=== PATIENT | male | born 1955 | race Caucasian/White ===

== ENCOUNTER 2017-01-04 10:04 | Emergency (ER) | payer MEDICAID ==
[~2017-01-04] VITALS: Ht 162.6 cm; Wt 78.9 kg
[~2017-01-04 10:04] MED LIST: [UNRECOGNIZED DRUG - CODE] PO
[2017-01-04 10:14] VITALS: Ht 162.6 cm; Wt 78.9 kg
[2017-01-04] MEDS ORDERED: IBUPROFEN 600 MG TAB PO ONE (11:30)
--- NOTE | 2017-01-04 11:53 | RADRPT ---
PROCEDURE: Right elbow series CLINICAL INDICATION: Right elbow pain. TECHNIQUE: AP, oblique, and lateral views of the right elbow were obtained. COMPARISON: None FINDINGS: No acute fracture or dislocations are seen. The osseous structures are well mineralized. The artic ular surfaces are normal. No joint effusion is seen. No soft tissue abnormalities are seen. IMPRESSION: Unremarkable right elbow series. RPTAT: HPNM Physician Alvarado Date Time Electronically viewed and signed by Demetrius Garcia Physician on 01/04/2017 11:53 /
[2017-01-04] MEDS ORDERED: IBUP-1542 PO (12:26)
[2017-01-04] MEDS ORDERED: IBUP400T22 PO (12:26)
--- NOTE | 2017-01-04 12:34 | ERD ---
ER Documentation Chief Complaint Date/Time DATE: 01/04/17 TIME: 12:29 Chief Complaint Pt with B elbow pain X 4 weeks. no injury. HPI 61-year-old male patient with no significant past medical history presents to the ED complaining of right elbow pain that started intermittently 4 weeks ago. Reports that this feels achy and rates it a 6 out of 10. States that he sleeps with his elbows in a flexed position and he lays on his hands. Reports that he has been doing this for many years. Denies any weakness, numbness or tingling, chest pain, shortness of breath, abdominal pain, nausea, vomiting. ROS All systems reviewed and are negative except as per history of present illness. Medications Home Meds Active Scripts Ibuprofen* (Motrin*) 400 Mg Tab, 400 MG PO Q6, #30 TAB Prov:GIOVANNI ERVIN PA-C 01/04/17 Pseudoephedrine Hcl (12 HOUR COLD RELIEF) 120 Mg Tablet.er, 120 MG PO Q12 for 10 Days, TAB Prov:SHERRI BURGOS NP 06/15/16 Allergies Allergies: Coded Allergies: No Known Allergy (Unverified , 01/04/17) PMhx/Soc Medical and Surgical Hx: pt denies Medical Hx, pt denies Surgical Hx Hx Alcohol Use: No Hx Substance Use: No Hx Tobacco Use: Yes Smoking Status: Never smoker Physical Exam Vitals Vital Signs Date Time Temp Pulse Resp B/P Pulse Ox O2 Delivery O2 Flow Rate FiO2 01/04/17 10:14 97.9 115 18 147/85 97 Physical Exam Const: [id number], well-nourished. In no acute distress. Head: Atraumatic, normocephalic Eyes: Normal Conjunctiva without injection ENT: Normal external ear, nose and mouth. Neck: Full range of motion. No meningismus. Resp: Clear to auscultation bilaterally. No wheezing, rhonchi, rales, or crackles. No accessory muscle use. No retractions. Cardio: Regular rate and rhythm, no murmurs Skin: No petechiae or rashes Back: No midline tenderness. No CVA tenderness. Ext: No cyanosis, or edema. Cap refill less than 2 seconds. Distal pulses intact bilaterally. Tenderness to palpation of the lateral malleolus. Patient was able to bilaterally flex, extend, supinate and pronate bilateral elbows. Full range of motion of other extremities. No erythema, edema, deformities, warmth to touch bilaterally. Neur: Awake and alert. Normal gait and coordination. Muscle strength 5/5. Sensation intact bilaterally. Psych: Normal Mood and Affect Results 24 hrs Current Medications Medications (Trade) Dose Ordered Sig/Hola Route PRN Reason Start Time Stop Time Status Last Admin Dose Admin Ibuprofen (Motrin) 600 mg ONCE ONCE PO 01/04/17 11:30 01/04/17 11:38 DC 01/04/17 11:11 Procedures/MDM This is a 61-year-old male patient presents the ED complaining of right elbow pain that started intermittently 4 weeks ago. Patient is afebrile and nontoxic- appearing. Patient has normal vital signs. A right elbow x-ray was ordered to further evaluate patient. PROCEDURE: Right elbow series CLINICAL INDICATION: Right elbow pain. TECHNIQUE: AP, oblique, and lateral views of the right elbow were obtained. COMPARISON: None FINDINGS: No acute fracture or dislocations are seen. The osseous structures are well mineralized. The articular surfaces are normal. No joint effusion is seen. No soft tissue abnormalities are seen. IMPRESSION: Unremarkable right elbow series. Patient is placed in a right elbow Ike wrap. Splint Assessment: Neurovascularly intact pre and post Ike wrap placement with good fit. Patient likely has a right elbow sprain. Patient's extremity symptoms have stabilized while they have been evaluated in the department and are appropriate for outpatient follow up. No evidence of fractures, dislocations, compartment syndrome, neurologic injury, vascular injury, open joint, open fracture, tendon laceration, septic arthritis, osteomyelitis, DVT, foreign body, or other emergent conditions. Discharge medications: Ibuprofen Follow up with primary care physician in 1-2 days. Instructed patient to return to the ED sooner for any worsening symptoms. Patient's questions were answered. Patient understood and agreed with discharge plan. Patient discharged stable. Departure Diagnosis: Primary Impression: Elbow pain Laterality: right Qualified Code: M25.521 - Right elbow pain Condition: Stable Patient Instructions: Sprain Elbow Referrals: [facility] Usted se cm hecho un examen mdico de control que le indica que no est en rian condicin que requiera tratamiento urgente en el Departamento de Emergencia. Un estudio ms profundo y el tratamiento de carr condicin pueden esperar sin ningn riesgo hasta que usted sea atendida/o en el consultorio de carr mdico o rian cl tim. Es responsabilidad suya arreglar rian shanelle para el seguimiento del caro. MANEJO DE CONDICIONES NO URGENTES EN EL FUTURO 1) Si usted tiene un mdico de atencin primaria: Usted debera llamar a carr mdico de atencin primaria antes de venir al departamento de emergencia. Despus de las horas de consultorio, carr doctor o carr asociado/a est disponible por telfono. El mdico o enfermero de macy en el servicio telefnico puede asesorarle por monique medio para atender el problema, o caro contrario se puede programar rian shanelle. 2) Si usted no tiene un mdico de atencin primaria: Llame al mdico o clnica de referencia que aparece abajo jacoby las horas de consultorio para hacer rian shanelle para que le vean. CLINICAS: [facility] [phone] [facility] [phone] [address] [facility]. [facility] [phone] [address] [facility]. [place] [phone] [facility] [place] [id number] [phone] [facility]. [phone] [facility] () Usted se cm hecho un examen mdico de control que le indica que no est en rian condicin que requiera tratamiento urgente en el Departamento de Emergencia. Un estudio ms profundo y el tratamiento de carr condicin pueden esperar sin ningn riesgo hasta que usted sea atendida/o en el consultorio de carr mdico o rian cl tim. Es responsabilidad suya arreglar rian shanelle para el seguimiento del caro. MANEJO DE CONDICIONES NO URGENTES EN EL FUTURO 1) Si usted tiene un mdico de atencin primaria: Usted debera llamar a carr mdico de atencin primaria antes de venir al departamento de emergencia. Despus de las horas de consultorio, carr doctor o carr asociado/a est disponible por telfono. El mdico o enfermero de macy en el servicio telefnico puede asesorarle por monique medio para atender el problema, o caro contrario se puede programar rian shanelle. 2) Si usted no tiene un mdico de atencin primaria: Llame al mdico o condado institucions de referencia que aparece abajo jacoby las horas de consultorio para hacer rian shanelle para que le vean. SI USTED NO PUEDE PAGAR PARA IKE UN MEDICO puede ir a: [facility] [address] [place] [address] [facility] [address] [place] [address] [facility] [address] [place] [address] [facility] [address] [place], [place] [id number] Additional Instructions: Llame al doctor MAANA y danelle rian SHANELLE PARA DENTRO DE 2-3 FERRER.Dgale a la secretaria que nosotros le instruimos hacer esta shanelle.Avise o llame si carr condicin se empeora antes de la shanelle. Regresa aqui si peor o no mejor. GIOVANNI ERVIN PA-C Jan 04, 2017 12:34
== END 2017-01-04 12:48 | disposition home or self-care (01) ==
LOC: FTE 10:04
DX: M25.521 Pain in right elbow (principal); I10 Essential (primary) hypertension; Z87.891 Personal history of nicotine dependence
CPT/HCPCS: 73080; Z7502; Z7610

== ENCOUNTER 2017-01-30 08:33 | Emergency (ER) | payer MEDICAID ==
[~2017-01-30] VITALS: Ht 160 cm; Wt 72.0 kg
[~2017-01-30 08:33] MED LIST changes: +IBUP400T22 PO
[2017-01-30 08:39] VITALS: Ht 160 cm; Wt 72.0 kg
[2017-01-30] MEDS ORDERED: ASPIRIN 325 MG TAB PO STA (10:37)
[2017-01-30] MEDS ORDERED: AMLO-147 PO (10:49)
[2017-01-30 10:56] LABS: ADD SCAN DIFF NO
[2017-01-30] MEDS ORDERED: LIDOCAINE/MYLANTA 40 ML BTL PO ONE (11:00)
[2017-01-30 11:16] LABS: BASOPHILS % 0.4 % (0.0-2.0); EOSINOPHILS # 0.1 10^3/ul (0.0-0.5); EOSINOPHILS % 1.4 % (0.0-7.0); HEMOGLOBIN 14.1 g/dl (14.0-18.0); LYMPHOCYTES # 1.8 10^3/ul (0.8-2.9); LYMPHOCYTES % 25.6 % (15.0-51.0); MEAN CORPUSCULAR HEMOGLOBIN 30.7 pg (29.0-33.0); MEAN CORPUSCULAR HGB CONC 33.6 g/dl (32.0-37.0); MEAN CORPUSCULAR VOLUME 91.5 fl (82.0-101.0); MEAN PLATELET VOLUME 10.2 fl (7.4-10.4); MONOCYTE # 0.5 10^3/ul (0.3-0.9); MONOCYTES % 6.5 % (0.0-11.0); NEUTROPHIL # 4.7 10^3/ul (1.6-7.5); NEUTROPHILS % 65.5 % (39.0-77.0); PLATELET COUNT 220 10^3/UL (140-415); RED BLOOD COUNT 4.59 10^6/ul (4.70-6.10); RED CELL DISTRIBUTION WIDTH 12.1 % (11.5-14.5); WHITE BLOOD COUNT 7.1 10^3/ul (4.8-10.8)
[2017-01-30 11:19] LABS: INR 0.94; PROTIME 12.6 Sec (12.2-14.2)
[2017-01-30 11:23] LABS: ANION GAP 9 (8-16); BLOOD UREA NITROGEN 13 mg/dl (7-20); CALCIUM 8.6 mg/dl (8.4-10.2); CARBON DIOXIDE 28 mmol/L (21-31); CHLORIDE 107 mmol/L (97-110); CREATININE 0.63 mg/dl (0.61-1.24); GLUCOSE 134 mg/dl (70-220); POTASSIUM 3.3 mmol/L (3.5-5.1); SODIUM 141 mmol/L (135-144)
--- NOTE | 2017-01-30 11:55 | RADRPT ---
PROCEDURE: Chest Radiograph. CLINICAL INDICATION: Chest pain TECHNIQUE: Single frontal chest radiograph. COMPARISON: None available FINDINGS: Heart size is within normal limits. Atherosclerotic calcifications are present. No infiltrate or effusion is seen. The bones are intact. IMPRESSION: 1. No evidence of acute cardiopulmonary disease. 2. Atherosclerotic vascular disease. RPTAT: KK .Tony Villegas MD, MD Date Time Electronically viewed and signed by .Tony Villegas MD, on 01/30/2017 11:54 .B/
[2017-01-30 12:04] LABS: TROPONIN-I < 0.012 ng/ml (0.00-0.12)
[2017-01-30 12:37] VITALS: BP 155/90; PULSE 86; RESP 18
[2017-01-30] MEDS ORDERED: RANI150T9 PO (13:02)
--- NOTE | 2017-01-30 13:06 | ERD ---
ER Documentation Chief Complaint Date/Time DATE: 01/30/17 TIME: 13:03 Chief Complaint CHEST PAIN X 1 MONTH AND STATES HTN HPI This 61-year-old male presents with burning chest pain that goes from his epigastric area to his mid sternum and sometimes on his left side on and off for a month. Today he has had the pain for approximately 6 hours. He has no shortness of breath, nausea or vomiting with it. He denies fevers and chills. He does have hypertension for which he takes amlodipine 10 mg. He has no other medical problems and does have a good primary care that he follows up with regularly. ROS All systems reviewed and are negative except as per history of present illness. Medications Home Meds Active Scripts Ranitidine Hcl* (Zantac*) 150 Mg Tablet, 150 MG PO BID Y for EPIGASTRIC PAIN, # 60 TAB Prov:ARLET RIGGINS DO 01/30/17 Reported Medications Amlodipine Besylate* (Amlodipine Besylate*) 10 Mg Tablet, 10 MG PO DAILY, #30 TAB 01/30/17 Discontinued Scripts Ibuprofen* (Motrin*) 400 Mg Tab, 400 MG PO Q6, #30 TAB Prov:GIOVANNI ERVIN PA-C 01/04/17 Pseudoephedrine Hcl (12 HOUR COLD RELIEF) 120 Mg Tablet.er, 120 MG PO Q12 for 10 Days, TAB Prov:SHERRI BURGOS NP 06/15/16 Allergies Allergies: Coded Allergies: No Known Allergy (Unverified , 01/30/17) PMhx/Soc History of Surgery: No Anesthesia Reaction: No Hx Neurological Disorder: No Hx Respiratory Disorders: No Hx Psychiatric Problems: No Hx Miscellaneous Medical Probl: No Hx Alcohol Use: No Hx Substance Use: No Hx Tobacco Use: Yes Smoking Status: Current every day smoker Physical Exam Vitals Vital Signs Date Time Temp Pulse Resp B/P Pulse Ox O2 Delivery O2 Flow Rate FiO2 01/30/17 12:37 86 18 155/90 100 Nasal Cannula 2.0 01/30/17 10:38 Nasal Cannula 2 01/30/17 08:39 97.8 103 18 156/82 95 Physical Exam Const: [] No distress Head: Atraumatic Eyes: Normal Conjunctiva ENT: Normal External Ears, Nose and Mouth. Neck: Full range of motion..~ No meningismus. Resp: Clear to auscultation bilaterally Cardio: Regular rate and rhythm, no murmurs Abd: Soft, non tender, non distended. Normal bowel sounds Skin: No petechiae or rashes Back: No midline or flank tenderness Ext: No cyanosis, or edema Neur: Awake and alert and oriented 3, no focal deficit Psych: Normal Mood and Affect Result Diagram: 01/30/17 1030 01/30/17 1030 Results 24 hrs Laboratory Tests Test 01/30/17 10:30 White Blood Count 7.110^3/ul Red Blood Count 4.5910^6/ul Hemoglobin 14.1g/dl Hematocrit 42.0% Mean Corpuscular Volume 91.5fl Mean Corpuscular Hemoglobin 30.7pg Mean Corpuscular Hemoglobin Concent 33.6g/dl Red Cell Distribution Width 12.1% Platelet Count 57336^3/UL Mean Platelet Volume 10.2fl Neutrophils % 65.5% Lymphocytes % 25.6% Monocytes % 6.5% Eosinophils % 1.4% Basophils % 0.4% Nucleated Red Blood Cells % 0.0/100WBC Neutrophils # 4.710^3/ul Lymphocytes # 1.810^3/ul Monocytes # 0.510^3/ul Eosinophils # 0.110^3/ul Basophils # 0.010^3/ul Nucleated Red Blood Cells # 0.010^3/ul Prothrombin Time 12.6Sec Prothrombin Time Ratio 1.0 INR International Normalized Ratio 0.94 Activated Partial Thromboplast Time 29.0Sec Sodium Level 141mmol/L Potassium Level 3.3mmol/L Chloride Level 107mmol/L Carbon Dioxide Level 28mmol/L Anion Gap 9 Blood Urea Nitrogen 13mg/dl Creatinine 0.63mg/dl Glucose Level 134mg/dl Calcium Level 8.6mg/dl Troponin I < 0.012ng/ml Current Medications Medications (Trade) Dose Ordered Sig/Hola Route PRN Reason Start Time Stop Time Status Last Admin Dose Admin Miscellaneous Medication (Gi Cocktail (2)) 40 ml ONCE ONCE PO 01/30/17 11:00 01/30/17 11:01 DC 01/30/17 10:45 Aspirin (Aspirin) 325 mg ONCE STAT PO 01/30/17 10:37 01/30/17 10:38 DC 01/30/17 10:45 Procedures/MDM Chest pain in a 61-year-old male with presentation most consistent with acid reflux. Chest pain is described as a burning sensation with no other associated symptoms. He was given aspirin as well as a GI cocktail in the emergency room which immediately took away all of his pain. He was symptom- free in the emergency room. Has a nonischemic EKG and a negative troponin. I am going to discharge him with Zantac prescription as well as instructions to see his primary care doctor, who he has an appointment with next week, to obtain an echocardiogram of his heart. EKG interpretation: Normal sinus rhythm rate of 98, normal axis, normal intervals, no ST or T-wave changes concerning for acute ischemia. Nonspecific ST-T wave change. shank archer interpretation: Normal sinus arrhythmia Chest x-ray interpretation: No acute process, I see no widened mediastinum, no pneumothorax, no infiltrates, no pulmonary edema, no fractures Departure Diagnosis: Primary Impression: GERD (gastroesophageal reflux disease) Additional Impression: Chest pain Condition: Stable Patient Instructions: Chest Pain, Uncertain Cause, Gerd (Adult) Additional Instructions: Llame al doctor MY y danelle rian SHANELLE PARA DENTRO DE 2-3 FERRER. Consigue rian shanelle para un ECHOCARDIOGRAM. Dgale a la secretaria que nosotros le instruimos hacer esta shanelle.Avise o llame si carr condicin se empeora antes de la shanelle. Regresa aqui si peor o no mejor. ARLET RIGGINS DO January 30, 2017 13:06
== END 2017-01-30 13:10 | disposition home or self-care (01) ==
LOC: E/R 08:33
DX: K21.9 Gastro-esophageal reflux disease without esophagitis (principal); F17.210 Nicotine dependence, cigarettes, uncomplicated; I10 Essential (primary) hypertension
CPT/HCPCS: 36415; 71010; 80048; 84484; 85025; 85610; 85730; 93005; Z7502; Z7610

== ENCOUNTER 2017-12-06 08:10 | Emergency (ER) | END 2017-12-06 12:37 | disposition home or self-care (01) ==

== ENCOUNTER 2018-03-31 11:32 | Emergency (ER) | END 2018-03-31 13:30 | disposition home or self-care (01) ==

== ENCOUNTER → 2018-10-01 | Emergency (ER) | payer MEDICAID ==
[~2018-10-01] VITALS: Wt 72.7 kg
[~2018-10-01] MED LIST changes: +ACET500C5 PO; +AMLO-147 PO; +BENZ-6 PO; +CYCL10TA7 PO; +HYDR-4011 PO; +IBUP-1542 PO; -IBUP400T22 PO; +NAPR-985 PO; +PROM6.2515 PO; +PSEU-79 PO; +RANI150T35 PO; -[UNRECOGNIZED DRUG - CODE] PO
[2018-10-01 12:44] VITALS: BP 107/66; PULSE 84; RESP 20
--- NOTE | 2018-10-01 14:28 | ERD ---
ER Documentation Chief Complaint Chief Complaint cough, throat pain x 2 weeks HPI 63-year-old male presenting with cough and sore throat times 2 weeks. Patient has a dry cough and has had tactile fevers. He had a runny nose. No sick contacts. Denies taking any medication. Medical history is hypertension. NKDA. Surgical history denies. Social history smokes 3 cigarettes a day. ROS All systems reviewed and are negative except as per history of present illness. Medications Home Meds Active Scripts Pseudoephedrine Hcl* (Suphedrin*) 30 Mg Tablet, 30 MG PO Q6 PRN for CONGESTION, #30 TAB Prov:ROYCE VALLADARES PA-C 10/01/18 Benzonatate* (Tessalon Perle*) 100 Mg Capsule, 100 MG PO Q8H PRN for COUGH, #30 CAP Prov:ROYCE VALLADARES PA-C 10/01/18 Promethazine Hcl* (Promethazine Hcl* Syrup) 6.25 Mg/5 Ml Syrup, 6.25 MG PO Q6H PRN for COUGH, #100 ML Prov:ROYCE VALLADARES PA-C 10/01/18 Ibuprofen* (Motrin*) 600 Mg Tab, 600 MG PO Q6, #30 TAB Prov:JENNA RHODES 03/31/18 Hydrocodone/Acetaminophen ([place] 5-325 Tablet) 1 Each Tablet, 1 TAB PO Q6H PRN for PAIN, #20 TAB Prov:JENNA RHODES 03/31/18 Cyclobenzaprine Hcl* (Cyclobenzaprine Hcl*) 10 Mg Tablet, 10 MG PO QHS, #7 TAB Prov:KATHE WUC 12/06/17 Acetaminophen* (Tylophen*) 500 Mg Capsule, 1 CAP PO Q6H PRN for PAIN AND OR ELEVATED TEMP, #30 CAP Prov:KATHE WUC 12/06/17 Naproxen* (Naprosyn*) 500 Mg Tablet, 500 MG PO BID PRN for PAIN AND/OR INFLAMMATION, #30 TAB Prov:KATHE WU-C 12/06/17 Ranitidine Hcl* (Zantac*) 150 Mg Tablet, 150 MG PO BID PRN for EPIGASTRIC PAIN, #60 TAB Prov:ARLET RIGGINS DO 01/30/17 Reported Medications Amlodipine Besylate* (Amlodipine Besylate*) 10 Mg Tablet, 10 MG PO DAILY, #30 TAB 01/30/17 Allergies Allergies: Coded Allergies: No Known Allergy (Unverified , 12/06/17) PMhx/Soc History of Surgery: No Anesthesia Reaction: No Hx Neurological Disorder: No Hx Respiratory Disorders: No Hx Psychiatric Problems: No Hx Miscellaneous Medical Probl: No Hx Alcohol Use: No Hx Substance Use: No Hx Tobacco Use: Yes Smoking Status: Current every day smoker FmHx Family History: No diabetes, No coronary disease, No other Physical Exam Vitals Vital Signs Date Temp Pulse Resp B/P (MAP) Pulse Ox O2 O2 Flow FiO2 Time Delivery Rate 10/01/18 97.7 84 20 107/66 95 12:44 (80) Physical Exam GENERAL: The patient is well-appearing, well-nourished, in no acute distress HEENT: Atraumatic. Conjunctivae are pink. Pupils equal, round, and reactive to light. There is no scleral icterus. Tympanic membranes clear bilaterally. Oropharynx clear. NECK: C-spine is soft and supple. There is no meningismus. There is no cervical lymphadenopathy. CHEST: Clear to auscultation bilaterally. There are no rales, wheezes or rhonchi. HEART: Regular rate and rhythm. No murmurs, clicks, rubs or gallops. No S3 or S4. Procedures/MDM MDM: 63-year-old male presenting with URI type symptoms. I have low suspicion for pneumonia. I have low suspicion for bacterial HEENT infection. I do not feel the patient requires antibiotics. Patient will be discharged with supportive medications. All questions answered at discharge. Patient is told to follow-up with primary care and recommended to return to the ER symptoms change or worsen. Patient understood and comply with plan Departure Diagnosis: Primary Impression: Cough Condition: Stable Patient Instructions: Cough, Chronic, Uncertain Cause, (Adult) Referrals: COMMUNITY CLINICS YOU HAVE RECEIVED A MEDICAL SCREENING EXAM AND THE RESULTS INDICATE THAT YOU DO NOT HAVE A CONDITION THAT REQUIRES URGENT TREATMENT IN THE EMERGENCY DEPARTMENT. FURTHER EVALUATION AND TREATMENT OF YOUR CONDITION CAN WAIT UNTIL YOU ARE SEEN IN YOUR DOCTORS OFFICE WITHIN THE NEXT 1-2 DAYS. IT IS YOUR RESPONSIBILITY TO M MARI AN APPOINTMENT FOR FOLOW-UP CARE. IF YOU HAVE A PRIMARY DOCTOR --you should call your primary doctor and schedule an appointment IF YOU DO NOT HAVE A PRIMARY DOCTOR YOU CAN CALL OUR PHYSICIAN REFERRAL HOTLINE AT IF YOU CAN NOT AFFORD TO SEE A PHYSICIAN YOU CAN CHOSE FROM THE FOLLOWING [facility]MERLY [facility] [address] [facility] [address] [facility] [address] [facility] [address] [facility] [facility] [address] [facility] [facility]. [address] Additional Instructions: FOLLOW UP WITH YOUR PRIMARY CARE PHYSICIAN TOMORROW.Return to this facility if you are not improving as expected. ROYCE VALLADARES PA-C Oct 01, 2018 14:28
== END | disposition home or self-care (01) ==
LOC: FTE 12:39
DX: R05 Cough (principal); F17.210 Nicotine dependence, cigarettes, uncomplicated
CPT/HCPCS: 99283